=== PATIENT | male | born 2000 ===

== ENCOUNTER 2021-10-17 02:33 | Emergency (ER) | payer OTHER, SELFPAY ==
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
[2021-10-17 02:40] VITALS: BP 111/93; BP 140/82; PULSE 67; PULSE 86; RESP 11; TEMP 36.1; O2SAT 100; O2SAT 98
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
[2021-10-17 03:09] LABS: MANUAL DIFF FLAG NO
[2021-10-17 03:11] LABS: Basophils Percent Auto 0.2 % (0-2); Eosinophils Percent Auto 0.5 % (0-4); Hematocrit 43.2 % (42.0-52.0); Hemoglobin 14.3 g/dl (14.0-18.0); Imm Gran Abs Auto 0.02 X10*3/uL (0.00-0.03); Imm Gran Pct Auto 0.3 % (0.0-0.4); Lymphocytes Absolute Auto 2.3 X10*3/uL (1.2-4.9); Lymphocytes Percent Auto 36.5 % (20-40); Mean Corpuscular HGB Conc 33.1 g/dl (31.0-36.0); Mean Corpuscular Hemoglobin 30.7 pg (27.0-33.0); Mean Corpuscular Volume 92.7 fL (80.0-98.0); Mean Platelet Volume 8.9 fL (9.4-12.4); Monocytes Absolute Auto 0.7 X10*3/uL (0.1-1.2); Monocytes Percent Auto 10.8 % (2-11); Neutrophils Absolute Auto 3.3 x10*3/uL (2.0-8.3); Neutrophils Percent Auto 51.7 % (45-73); Platelet Count 291 X10*3/uL (160-400); Red Blood Count 4.66 X10*6/uL (4.60-5.80); Red Cell Distribution Width 12.4 % (11.0-16.0); White Blood Count 6.3 X10*3/uL (4.8-10.8)
[2021-10-17 03:17] LABS: INTERNATIONAL NORM RATIO 1.1 (0.9-1.1); Prothrombin Time 12.3 SEC (9.9-13.0)
[2021-10-17 03:26] LABS: Alanine Aminotransferase 35 U/L (0-40); Albumin Level 4.7 g/dL (3.5-5.0); Alkaline Phosphatase 58 U/L (39-117); Anion Gap 14 (12-20); Aspartate Amino Transferase 36 U/L (5-37); Bilirubin Total 0.5 mg/dL (0.0-1.0); Blood Urea Nitrogen 7 mg/dL (9-16); Calcium 9.7 mg/dL (8.4-10.2); Carbon Dioxide 27 mmol/L (22-29); Chloride 108 mmol/L (96-108); Creatinine Clr Calc Pharmacy 43.9; Estimated Glomerular Filt Rate > 60; Glucose Random 101 mg/dL (60-115); Lipase 20 U/L (8-78); Potassium 4.2 mmol/L (3.3-5.1); Sodium 145 mmol/L (135-145); Total Protein 7.6 g/dL (6.5-8.0)
[2021-10-17 03:30] LABS: Ethanol 249 mg/dL
[2021-10-17] MEDS: iohexoL 350 MG/ML 100 ML INFUS..BTL 85 ML IV (05:12)
[2021-10-17 05:43] VITALS: BP 100/46; PULSE 61; RESP 13; O2SAT 98
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
--- NOTE | 2021-10-17 07:48 | PC.NURSE ---
JACKET, PHONE WATCH AND SNEAKERS ONLY BELONGINGS AT BEDSIDE AT TIME OF DISCHARGE
== END 2021-10-17 07:48 | disposition home or self-care (01) ==
PROVIDERS: Emergency Provider Student in an Organized Health Care Education/Training Program
DX: S01.21XA Laceration without foreign body of nose, initial encounter (principal); G44.309 Post-traumatic headache, unspecified, not intractable; M54.50 Low back pain, unspecified; F10.129 Alcohol abuse with intoxication, unspecified; R10.2 Pelvic and perineal pain; M54.2 Cervicalgia; Y90.8 Blood alcohol level of 240 mg/100 ml or more; V43.52XA Car driver injured in collision with other type car in traffic accident, initial encounter; Y93.9 Activity, unspecified; Y92.410 Unspecified street and highway as the place of occurrence of the external cause; Y99.9 Unspecified external cause status; Z79.899 Other long term (current) drug therapy
CPT/HCPCS: 36415; 70450; 70486; 71260; 72125; 74177; 80053; 82077; 83690; 85025; 85610; 86850; 86900; 86901; 93005; 99284; Q9967

== ENCOUNTER 2023-08-06 14:15 | Emergency (ER) | payer MEDICAID, SELFPAY ==
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
[2023-08-06 14:35] VITALS: BP 121/77; PULSE 56; RESP 18; TEMP 37.6; O2SAT 98; BMI 18.6
== END 2023-08-06 14:59 | disposition home or self-care (01) ==
PROVIDERS: Emergency Provider Emergency Medicine Emergency Medical Services
DX: Z04.1 Encounter for examination and observation following transport accident (principal)
CPT/HCPCS: 99282; 99283

== ENCOUNTER 2024-09-27 20:04 | Inpatient (IN) | payer MEDICAID, OTHER, SELFPAY ==
--- NOTE | 2024-09-27 20:06 | ED.GENADULT ---
HPI - General Adult General Chief complaint: Back Pain/Injury Stated complaint: back pain Time Seen by Provider: 09/27/24 22:05 Source: patient Mode of arrival: ambulatory Limitations: no limitations History of Present Illness ED Provider: HPI narrative: Patient with multiple complaints came for bilateral flank pain for 3 months without any urinary symptoms, feels delusional smokes marijuana wants to get his mind cleared so that he can focus in his life parents said that patient may making SI and HI statements but patient denied any current SI or HI feels too much going on in his mind and he wants to get treat cleared so that he can focus in his life for future patient does not have any diagnose with schizoaffective disorder/psychotic disorder Related Data Home Medications ?Medication ?Instructions ?Recorded ?Confirmed No Known Home Meds 09/27/24 09/27/24 Allergies Allergy/AdvReac Type Severity Reaction Status Date / Time No Known Allergies Allergy Verified 09/27/24 20:08 Review of Systems Review of Systems: Yes all other systems are reviewed and are negative [facility] Social History Social History Smoked in Last 30 Days: Yes Advance Directives: No Advance Directives Information Provided: No Do you have a plan to hurt others: No Plan Physical Exam ED Vital Signs: Vital Signs - 24 hr 09/27/24 20:07 09/28/24 06:13 Temperature 98.0 F 98.9 F Pulse Rate 60 50 Respiratory Rate 17 14 Blood Pressure 127/87 98/63 Pulse Oximetry 98 99 Oxygen Delivery Method Room Air Room Air BMI result Body Mass Index 20.5 Appearance: Alert. Oriented X3. No acute distress. Eyes: PERRLA, No Nystagmus ENT: Pharynx normal. Oral Mucosa moist Neck: Normal inspection. Neck supple. CVS: Normal heart rate and rhythm. Pulses normal. Respiratory: No respiratory distress. Equal air entry bilateral, no wheezing/rales/rhonchi Abdomen: Soft and nontender. Bowel sounds are present, no mass palpable, no CVA tenderness Skin: Skin warm and dry. Normal skin color. Normal skin turgor. Extremities: No lower extremity edema. No calf tenderness psych: Normal mood not delusion no hallucination denies any SI or HI Neuro: Oriented X 3. No motor deficit. No sensory deficit.No cerebellar signs , cranial nerves II-XII intact Course Course Course Narrative: This is a rapid medical exam performed by Adamaris Barron NP: Additional HPI, ROS, PE not included below will be deferred to primary provider. Patient is a 24-year-old male presenting to the ED complaining of back pain, states I have bad kidneys. Upon arrival to the ED, stepfather brought a phone into triage office stating that patient's mother wants to speak with nursing staff. Mother reports that patient has been making suicidal and homicidal statements. Told his sister on the phone tonight that he had thoughts of hurting himself, shooting others. Mother states he does not have access to firearms, but she has been very concerned with his recent behavior and statements. Patient states I'm not in the best state of mind, I've experienced losing myself, and reports that he is willing to speak with the CARE team. Plan: med clearance, CARE eval Medical Decision Making Medical Decision Making MDM Narrative: Patient is delusional denies any SI or HI would like to talk to care team never seen a psychiatrist or taken any medication, medically cleared patient likely has schizoaffective disorder seen by care team bed search Lab Data MDM Lab Attestation statement: I reviewed the patient's lab results. 09/27/24 20:26 09/27/24 20:26 Labs: Lab Results 09/27/24 09/27/24 Range/Units 20:26 21:10 WBC 9.6 (4.8-10.8) X10*3/uL RBC 4.69 (4.60-5.80) X10*6/uL Hgb 14.3 (14.0-18.0) g/dl Hct 42.0 (42.0-52.0) % MCV 89.6 (80.0-98.0) fL MCH 30.5 (27.0-33.0) pg MCHC 34.0 (31.0-36.0) g/dl RDW 11.6 (11.0-16.0) % Plt Count 283 (160-400) X10*3/uL MPV 9.0 L (9.4-12.4) fL Immature Gran % (Auto) 0.3 (0.0-0.4) % Neut % (Auto) 71.4 (45-73) % Lymph % (Auto) 20.2 (20-40) % [place] % (Auto) 7.7 (2-11) % Eos % (Auto) 0.2 (0-4) % Baso % (Auto) 0.2 (0-2) % Lymph # (Auto) 2.0 (1.2-4.9) X10*3/uL [place] # (Auto) 0.7 (0.1-1.2) X10*3/uL Eos # (Auto) 0.0 (0.0-0.4) X10*3/uL Baso # (Auto) 0.0 (0.0-0.2) X10*3/uL Abs Immat Gran (auto) 0.03 (0.00-0.03) X10*3/uL Absolute Neuts (auto) 6.9 (2.0-8.3) x10*3/uL Absolute Nucleated RBC 0.000 (0.0-0.012) X10*3/uL Nucleated RBC % (auto) 0.0 (0.0-0.2) /100WBC Sodium 140 (135-145) mmol/L Potassium 3.9 (3.3-5.1) mmol/L Chloride 107 (96-108) mmol/L Carbon Dioxide 26 (22-29) mmol/L Anion Gap 11 L (12-20) BUN 13 (9-16) mg/dL Creatinine 0.86 (0.5-1.4) mg/dL Estim Creat Clear Calc 110.5 Estimated GFR > 60 Random Glucose 128 H (60-115) mg/dL Calcium 9.8 (8.4-10.2) mg/dL Total Bilirubin 1.2 H (0.0-1.0) mg/dL AST 22 (5-37) U/L ALT 20 (0-40) U/L Alkaline Phosphatase 53 (39-117) U/L Total Protein 7.7 (6.5-8.0) g/dL Albumin 4.9 (3.5-5.0) g/dL Urine Color Yellow Urine Appearance Clear Urine pH 5.5 (5.0-9.0) Ur Specific [place] >= 1.030 H (1.005-1.025) Urine Protein Negative (Neg-Trace) mg/dL Urine Glucose (UA) Negative (Negative) mg/dL Urine Ketones 15 (Negative) mg/dL Urine Blood Trace H (Negative) Urine Nitrite Negative (Negative) Ur Leukocyte Esterase Negative (Negative) Urine RBC 0-2 (0-2) /HPF Urine WBC 0-5 (0-5) /HPF Ur Squamous Epith Cells 0-2 (0-2) /HPF Urine Bacteria None Seen (None Seen) Hyaline Casts 0-2 (0-2) /LPF Urine Opiates Screen Not Detected (Not Detect) Ur Buprenorphine Scrn Not Detected (Not Detect) ng/mL Ur Oxycodone Screen Not Detected (Not Detect) ng/mL Urine Methadone Screen Not Detected (Not Detect) ng/mL Urine Fentanyl Screen Not Detected (Not Detect) Ur Barbiturates Screen Not Detected (Not Detect) Ur Phencyclidine Scrn Not Detected (Not Detect) Ur Amphetamines Screen Not Detected (Not Detect) U Benzodiazepines Scrn Not Detected (Not Detect) Urine Cocaine Screen Not Detected (Not Detect) U Marijuana (THC) Screen POSITIVE H (Not Detect) Ethyl Alcohol < 10 mg/dL Discharge Plan Discharge Clinical Impression: Schizoaffective disorder Patient Disposition: Still a Patient Prescriptions: No Action No Known Home Meds Print Language: B[place]udian
[2024-09-27 20:07] VITALS: BP 127/87; PULSE 60; RESP 17; TEMP 36.7; O2SAT 98; BMI 20.5
[2024-09-27 20:31] LABS: MANUAL DIFF FLAG NO
[2024-09-27 20:32] LABS: Basophils Percent Auto 0.2 % (0-2); Eosinophils Percent Auto 0.2 % (0-4); Hemoglobin 14.3 g/dl (14.0-18.0); Imm Gran Abs Auto 0.03 X10*3/uL (0.00-0.03); Imm Gran Pct Auto 0.3 % (0.0-0.4); Lymphocytes Percent Auto 20.2 % (20-40); Mean Corpuscular Hemoglobin 30.5 pg (27.0-33.0); Mean Corpuscular Volume 89.6 fL (80.0-98.0); Monocytes Absolute Auto 0.7 X10*3/uL (0.1-1.2); Monocytes Percent Auto 7.7 % (2-11); Neutrophils Absolute Auto 6.9 x10*3/uL (2.0-8.3); Neutrophils Percent Auto 71.4 % (45-73); Platelet Count 283 X10*3/uL (160-400); Red Blood Count 4.69 X10*6/uL (4.60-5.80); Red Cell Distribution Width 11.6 % (11.0-16.0); White Blood Count 9.6 X10*3/uL (4.8-10.8)
[2024-09-27 20:47] LABS: Ethanol < 10 mg/dL
[2024-09-27 20:50] LABS: Alanine Aminotransferase 20 U/L (0-40); Albumin Level 4.9 g/dL (3.5-5.0); Alkaline Phosphatase 53 U/L (39-117); Anion Gap 11 (12-20); Aspartate Amino Transferase 22 U/L (5-37); Bilirubin Total 1.2 mg/dL (0.0-1.0); Blood Urea Nitrogen 13 mg/dL (9-16); Calcium 9.8 mg/dL (8.4-10.2); Carbon Dioxide 26 mmol/L (22-29); Chloride 107 mmol/L (96-108); Creatinine Clr Calc Pharmacy 110.5; Estimated Glomerular Filt Rate > 60; Glucose Random 128 mg/dL (60-115); Potassium 3.9 mmol/L (3.3-5.1); Sodium 140 mmol/L (135-145); Total Protein 7.7 g/dL (6.5-8.0)
[2024-09-27 21:39] LABS: Appearance Urine Clear; Color Urine Yellow; Glucose Urine UA Negative (Negative); Leukocyte Esterase Urine Negative (Negative); Nitrite Urine Negative (Negative); PH 5.5 (5.0-9.0); Specific Gravity - Urine >= 1.030 (1.005-1.025); UMIC TRIGGER UACC YES; Urine Blood Trace (Negative); Urine Ketones 15 mg/dL (Negative); Urine Protein Negative (Neg-Trace)
[2024-09-27 21:42] LABS: Bacteria Urine None Seen (None Seen); Hyaline Casts Urine 0-2 /LPF (0-2); RBC Urine 0-2 /HPF (0-2); Squamous Epithelial Cell Urine 0-2 /HPF (0-2); WBC Urine 0-5 /HPF (0-5)
[2024-09-27 21:52] LABS: Amphetamine Screen Urine Not Detected (Not Detect); Barbiturates, Urine Not Detected (Not Detect); Benzodiazepines Screen Urine Not Detected (Not Detect); Buprenorphine Scr Not Detected (Not Detect); Cannabinoid Screen Urine POSITIVE (Not Detect); Cocaine Screen Urine Not Detected (Not Detect); Fentanyl, urine Not Detected (Not Detect); Methadone Screen, Urine Not Detected (Not Detect); Opiate Screen Urine Not Detected (Not Detect); Oxycodone Screen Urine Not Detected (Not Detect); Phencyclidine Screen Urine Not Detected (Not Detect)
--- NOTE | 2024-09-28 06:10 | PC.NURSE ---
Patient slept through the night, no distress observed/reported, med rec completed/currently not on any medication, disposition per care team is section 12 inpatient bed search, 15 minutes safety check, no behavior and safety concerns, lab completed, VSS, will continue to monitor
[2024-09-28 06:13] VITALS: BP 98/63; PULSE 50; RESP 14; TEMP 37.2; O2SAT 99
--- NOTE | 2024-09-28 10:30 | PC.NURSE ---
pt slept till approx 0930, mother and step father called and message given to the pt, pt informed of pending admission and pt is agreeable and states he wants help
--- NOTE | 2024-09-28 11:58 | P.HPPS_ITS ---
HPI Date of Service: 09/28/24 Chief Complaint: Suicidal and Homicidal Sources of Information: patient interviewed, chart reviewed and crisis/core team assessment reviewed HPI Subjective Notes: [place] Warning and Section 12B Narrative: As per ED Note 09/27/24: Patient with multiple complaints came for bilateral flank pain for 3 months without any urinary symptoms, feels delusional smokes marijuana wants to get his mind cleared so that he can focus in his life parents said that patient may making SI and HI statements but patient denied any current SI or HI feels too much going on in his mind and he wants to get treat cleared so that he can focus in his life for future patient does not have any diagnose with schizoaffective disorder/psychotic disorder Today: Patient does present as very tangential during interview. stated he was here because he felt and stressed and needed help with financial literacy. Required lots of redirection. Also appears very guarded, for example focus on what insurance underwriter was documenting. Also declined signing voluntary paperwork. Educated on Section 12. He denied having any mental health issues and did not feel he needs to be in the hospital or need medications. Denies feeling stressed, overwhelmed, anxious, sleep disturbance, sadness, hallucinations. Reported hopefully his family will see that they can not abandon him and that might be a positive of being in the hospital. Denied substance concerns. Utilizes marijuana. 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 Reports his girlfriend of 4 years is 9 weeks . Denied any legal issues. From CARES evaluation, evidence that family have concerns around suicidal statements recently. He is also appeared paranoid. Also appeared tangential and difficulty organizing self with illogical statements. Past Psychiatric History: denied any psychiatric history. Medical Evaluation Reviewed: Yes PMFSH Social History: This is unclear. Patient reports he was initially homeless, now reports he is not homeless. Reports girlfriend of 4 years is 9 weeks . Denied legal issues. 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 Substance History: Denied Diagnostics Vital Signs (24Hr): Vital Signs - 24 hr 09/27/24 20:07 09/28/24 06:13 Temperature 98.0 F 98.9 F Pulse Rate 60 50 Respiratory Rate 17 14 Blood Pressure 127/87 98/63 Pulse Oximetry 98 99 Oxygen Delivery Method Room Air Room Air BMI result Body Mass Index 20.5 Labs 09/27/24 20:26 09/27/24 20:26 Labs: Laboratory Results - last 48 hr 09/27/24 09/27/24 20:26 21:10 WBC 9.6 RBC 4.69 Hgb 14.3 Hct 42.0 MCV 89.6 MCH 30.5 MCHC 34.0 RDW 11.6 Plt Count 283 MPV 9.0 L Immature Gran % (Auto) 0.3 Neut % (Auto) 71.4 Lymph % (Auto) 20.2 [place] % (Auto) 7.7 Eos % (Auto) 0.2 Baso % (Auto) 0.2 Lymph # (Auto) 2.0 [place] # (Auto) 0.7 Eos # (Auto) 0.0 Baso # (Auto) 0.0 Abs Immat Gran (auto) 0.03 Absolute Neuts (auto) 6.9 Absolute Nucleated RBC 0.000 Nucleated RBC % (auto) 0.0 Sodium 140 Potassium 3.9 Chloride 107 Carbon Dioxide 26 Anion Gap 11 L BUN 13 Creatinine 0.86 Estim Creat Clear Calc 110.5 Estimated GFR > 60 Random Glucose 128 H Calcium 9.8 Total Bilirubin 1.2 H AST 22 ALT 20 Alkaline Phosphatase 53 Total Protein 7.7 Albumin 4.9 Urine Color Yellow Urine Appearance Clear Urine pH 5.5 Ur Specific [place] >= 1.030 H Urine Protein Negative Urine Glucose (UA) Negative Urine Ketones 15 Urine Blood Trace H Urine Nitrite Negative Ur Leukocyte Esterase Negative Urine RBC 0-2 Urine WBC 0-5 Ur Squamous Epith Cells 0-2 Urine Bacteria None Seen Hyaline Casts 0-2 Urine Opiates Screen Not Detected Ur Buprenorphine Scrn Not Detected Ur Oxycodone Screen Not Detected Urine Methadone Screen Not Detected Urine Fentanyl Screen Not Detected Ur Barbiturates Screen Not Detected Ur Phencyclidine Scrn Not Detected Ur Amphetamines Screen Not Detected U Benzodiazepines Scrn Not Detected Urine Cocaine Screen Not Detected U Marijuana (THC) Screen POSITIVE H Ethyl Alcohol < 10 Meds/Allergies Meds Home Medications ?Medication ?Instructions ?Recorded ?Confirmed ?Type No Known Home Meds 09/27/24 09/27/24 History Allergies Allergies Allergy/AdvReac Type Severity Reaction Status Date / Time No Known Allergies Allergy Verified 09/27/24 20:08 Mental Status Exam Mental Status Exam Narrative: hospital clothing. Good hygiene. Very tangential and illogical. Is guarded and does appear paranoid. Adamantly denies feeling depressed, anxious, suicidal or homicidal. Denies hallucinations. Insight and judgment does appear limited Assessment & Plan Assessment & Plan (1) Unspecified psychosis: Status: Acute Code(s): F29 - Unspecified psychosis not due to a substance or known physiological condition Plan patient presents with disorganized thought form and paranoia and also reports of suicidal statements and concern from family. Patient has very limited insight. Denies any psychiatric history. Does not feel he needs inpatient admission or medication treatment. Does fulfill criteria for section 12 evaluation in the context of what are likely psychotic symptoms and also recent suicidal statements. Educated on Section 12 process. Will hold off scheduled medications for now and have as needed hydroxyzine and Zyprexa available Patient educated on: diagnosis and medication risk/benefits Reason for continued inpatient stay Substantial Risk for: harm to self and inability to function Statement Statement: I have reviewed the history and physical and performed a pertinent examination on my patient. No changes have occurred unless specified. If the History and Physical was not performed prior to admission, the Hospitalist's service will be consulted for completing the admission physical. Time Spent With Patient Time: Total time managing care of this patient today ____ minutes.
--- NOTE | 2024-09-28 13:13 | MHC.EDTECH ---
This tech provided lunch tray.
--- NOTE | 2024-09-28 13:17 | MHC.EDTECH ---
This tech while delivering lunch tray observed patient and guest arguing. Patient asked for guest to be escorted out. Guest asked me to obain debit card from patients phone. Patient declined to provide card to guest. Guest escorted to security. Security and RN aware of arguing.
[2024-09-28 14:30] VITALS: BP 113/73; PULSE 59; RESP 16; TEMP 36.7; O2SAT 99
[2024-09-28 17:11] VITALS: BMI 16.8
--- NOTE | 2024-09-28 17:17 | PC.ADMIT ---
Greg was admitted to [facility] from [facility] on a 12a on 09/28/24 at 14:20 for the treatment of psychosis. He declined CV upon admission and was placed on a 12b. Contraband/skin check was completed upon arrival to the unit. He denies use of ETOH but endorses daily use of cannabis and reports he smokes 1 blunt/day. Utox was positive for THC and BAL was <10. He does not take medications at home. He reports being homeless but also stated he rents a room from someone but did not specify. He initially self presented to [facility] with his step-father complaining of back pain. His mother reported over the phone that Greg had been making suicidal and homicidal statements and also reported concern over his recent behavior. He was calm and cooperative with admission process. His thought process was disorganized and speech was tangential. He denies having any medical problems. He was placed on 15 minute checks for safety.
[2024-09-28] MEDS: Ibuprofen 600 MG TABLET PO (17:29)
[2024-09-28 20:00] VITALS: BP 108/63; PULSE 54; TEMP 37; O2SAT 97
--- NOTE | 2024-09-28 22:34 | PC.NURSE ---
Patient complained of 8/10 back pain, but when this bond underwriter offered PRN tylenol, patient stated he had no pain and just wants to sleep.
[2024-09-29 07:57] VITALS: BP 117/59; PULSE 67; RESP 16; TEMP 36.7; O2SAT 100
[2024-09-29 08:24] LABS: Cholesterol 153 mg/dL (<200); HDL Cholesterol 72 mg/dL (>40); LDL Cholesterol Calculated 74 mg/dL (<100); Triglycerides 35 mg/dL (<150)
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
[2024-09-29] MEDS: Ibuprofen 600 MG TABLET PO (09:04)
[2024-09-29 20:00] VITALS: BP 118/66; PULSE 70; RESP 16; TEMP 37; O2SAT 98
[2024-09-30 07:44] VITALS: BP 121/71; PULSE 81; TEMP 37.1; O2SAT 100
--- NOTE | 2024-09-30 14:46 | P.DS_ITS ---
DS: Providers Provider Date of Service: 09/30/24 Date of admission: 09/28/24 12:02 Date of discharge: 10/01/24 Primary care physician: José Physician DS: Diagnosis Discharge Diagnosis (1) Unspecified psychosis: Status: Acute DS: Medications Discharge Medications Home Medications: Home Medications ?Medication ?Instructions ?Recorded ?Confirmed No Known Home Meds 09/27/24 09/27/24 Mental Status Exam Mental Status Exam Narrative: casually dressed. Good hygiene. Very tangential and illogical . Verbally hostile towards mom and agitated. Appears paranoid especially around family. Adamantly denies feeling depressed, anxious, suicidal or homicidal. Denies hallucinations. Insight and judgment does appear limited. denies SI/HI. Data Data Completed and Pending Completed studies during hospitalization [Text1]: 09/27/24 09/27/24 09/29/24 20:26 21:10 07:38 WBC 9.6 RBC 4.69 Hgb 14.3 Hct 42.0 MCV 89.6 MCH 30.5 MCHC 34.0 RDW 11.6 Plt Count 283 MPV 9.0 L Immature Gran % (Auto) 0.3 Neut % (Auto) 71.4 Lymph % (Auto) 20.2 [place] % (Auto) 7.7 Eos % (Auto) 0.2 Baso % (Auto) 0.2 Lymph # (Auto) 2.0 Free[place] # (Auto) 0.7 Eos # (Auto) 0.0 Baso # (Auto) 0.0 Abs Immat Gran (auto) 0.03 Absolute Neuts (auto) 6.9 Absolute Nucleated RBC 0.000 Nucleated RBC % (auto) 0.0 Sodium 140 Potassium 3.9 Chloride 107 Carbon Dioxide 26 Anion Gap 11 L BUN 13 Creatinine 0.86 Estim Creat Clear Calc 110.5 Estimated GFR > 60 Random Glucose 128 H Calcium 9.8 Total Bilirubin 1.2 H AST 22 ALT 20 Alkaline Phosphatase 53 Total Protein 7.7 Albumin 4.9 Triglycerides 35 Cholesterol 153 LDL Cholesterol, Calc 74 HDL Cholesterol 72 Urine Color Yellow Urine Appearance Clear Urine pH 5.5 Ur Specific [place] >= 1.030 H Urine Protein Negative Urine Glucose (UA) Negative Urine Ketones 15 Urine Blood Trace H Urine Nitrite Negative Ur Leukocyte Esterase Negative Urine RBC 0-2 Urine WBC 0-5 Ur Squamous Epith Cells 0-2 Urine Bacteria None Seen Hyaline Casts 0-2 Urine Opiates Screen Not Detected Ur Buprenorphine Scrn Not Detected Ur Oxycodone Screen Not Detected Urine Methadone Screen Not Detected Urine Fentanyl Screen Not Detected Ur Barbiturates Screen Not Detected Ur Phencyclidine Scrn Not Detected Ur Amphetamines Screen Not Detected U Benzodiazepines Scrn Not Detected Urine Cocaine Screen Not Detected U Marijuana (THC) Screen POSITIVE H Ethyl Alcohol < 10 DS: Summary Hospital Course Hospital Course: per 09/28 admission note: HPI Subjective Notes: Sarabia Warning and Section 12B Narrative: As per ED Note 09/27/24: Patient with multiple complaints came for bilateral flank pain for 3 months without any urinary symptoms, feels delusional smokes marijuana wants to get his mind cleared so that he can focus in his life parents said that patient may making SI and HI statements but patient denied any current SI or HI feels too much going on in his mind and he wants to get treat cleared so that he can focus in his life for future patient does not have any diagnose with schizoaffective disorder/psychotic disorder Today: Patient does present as very tangential during interview. stated he was here because he felt and stressed and needed help with financial literacy. Required lots of redirection. Also appears very guarded, for example focus on what grant writer was documenting. Also declined signing voluntary paperwork. Educated on Section 12. He denied having any mental health issues and did not feel he needs to be in the hospital or need medications. Denies feeling stressed, overwhelmed, anxious, sleep disturbance, sadness, hallucinations. Reported hopefully his family will see that they can not abandon him and that might be a positive of being in the hospital. Denied substance concerns. Utilizes marijuana. 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 Reports his girlfriend of 4 years is 9 weeks . Denied any legal issues. From CARES evaluation, evidence that family have concerns around suicidal statements recently. He is also appeared paranoid. Also appeared tangential an d difficulty organizing self with illogical statements. Past Psychiatric History: denied any psychiatric history. Medical Evaluation Reviewed: Yes PMFSH Social History: This is unclear. Patient reports he was initially homeless, now reports he is not homeless. Reports girlfriend of 4 years is 9 weeks . Denied legal issues. 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 Substance History: Denied Precis: patient presents with disorganized thought form and paranoia and also reports of suicidal statements and concern from family. Patient has very limited insight. Denies any psychiatric history. Does not feel he needs inpatient admission or medication treatment. Does fulfill criteria for section 12 evaluation in the context of what are likely psychotic symptoms and also recent suicidal statements. Educated on Section 12 process. Will hold off scheduled medications for now and have as needed hydroxyzine and Zyprexa available 09/29: Could likely benefit from a least a mood stabilizer probably an anti psychotic. Reports not wanting any medications. Will set limits on pt engaging with family as this appears to agitate patient. Otherwise continue to observe and attempt to educate on symptoms and role for medications. 09/30: refusing medications, denying safety concerns, asking for discharge. agreeable to discharge tomorrow. 10/01: no notable events overnight, discharged as per plan. Time Spent with Patient Time attestation: Total time managing care of this patient today __35__ minutes. Discharge Plan Discharge Anticipated Discharge Date/Time: 10/01/24 11:00 Patient Disposition: Home, Self-Care Discharge Diagnosis: Psychotic Disorder NOS Referrals: [facility] [Other] - 1 Week (walk in hours are 10am-12pm Monday-Monday.) [facility] [Provider Group] - 1 Week (09-30-24 09-30-24 [facility] was added to patients chart. Please call [phone] to schedule your follow up visit.) Discharge Medications: No Action No Known Home Meds Discharge Orders: Discharge Order (Routine); Ordered 10/01/24 Ordered By: Nolberto Bowman Diet: Advance to usual diet Activity on Discharge: As tolerated Stand Alone Forms: Patient Portal Discharge page, Community Support Print Language: Nepalese Care Plan Goals: remain safe and stable in the outpatient treatment setting Health Concerns: none Plan of Treatment: seek out mental health care in your area if you change your mind regarding the benefits of therapy and/or medication Assessment: not at imminent risk of harm to self or others Discharge Date/Time: 10/01/24 11:00
[2024-09-30 20:00] VITALS: BP 144/74; PULSE 84; RESP 16; TEMP 37.3; O2SAT 99
[2024-09-30] MEDS: hydrOXYzine HCL 25 MG TABLET PO (21:53)
[2024-10-01 08:00] VITALS: BP 106/60; PULSE 55; RESP 16; TEMP 36.6; O2SAT 98
--- NOTE | 2024-10-01 10:12 | PC.NURSE ---
Patient declined nicotine replacement when offered.
--- NOTE | 2024-10-01 11:04 | PC.NURSE ---
Patient was aware of discharge, reported readiness for discharge. D/C information given to the patient. Took his belongings with him. Left the unit at 11:00.
== END 2024-10-01 11:00 | disposition home or self-care (01) | DRG 751 ==
LOC: HO.ED 09-28 07:14 → HO.PADLT16 09-28 12:08
PROVIDERS: Registered Nurse Emergency; Admitting Provider Psychiatry & Neurology Psychiatry; Emergency Provider Internal Medicine; Visit Provider Psychiatry & Neurology Psychiatry
DX: F29 Unspecified psychosis not due to a substance or known physiological condition (principal); Z79.899 Other long term (current) drug therapy
CPT/HCPCS: 36415; 80053; 80061; 80307; 81001; 85025; 99285

== ENCOUNTER → 2024-09-28 12:02 | Outpatient (BNV) | payer OTHER, SELFPAY | PROVIDERS: Admitting Provider Psychiatry & Neurology Psychiatry; Emergency Provider Internal Medicine; Visit Provider Psychiatry & Neurology Psychiatry | DX: F29 Unspecified psychosis not due to a substance or known physiological condition (principal) | CPT/HCPCS: 99231; 99232 ==

== ENCOUNTER 2024-10-03 18:44 | Inpatient (IN) | payer MEDICAID, OTHER, SELFPAY ==
[2024-10-03 19:11] VITALS: BP 117/78; PULSE 82; RESP 20; TEMP 36.4; O2SAT 98; BMI 15.7
--- NOTE | 2024-10-03 19:12 | ED_ITS ---
HPI - Psych General Chief Complaint: Psychiatric Symptoms Stated Complaint: maniac Time Seen by Provider: 10/03/24 19:58 Source: patient Mode of arrival: ambulatory Limitations: no limitations History of Present Illness ED Provider: Lizzeth Reich PA-C HPI Narrative: Patient is a 24 year old assigned male at with a history of schizoaffective disorder presenting to the emergency department today with possible florentin. Patient states that he has been under a lot of stress and his girlfriend thinks that he is acting differently. Patient denies any thoughts of hurting himself, thoughts of hurting others, dizziness, lightheadedness, abdominal pain, nausea, vomiting, fever, chills, blurry vision, double vision, loss of vision, chest pain, difficulty breathing, shortness of breath, back pain, night sweats, pain with urination, increased urinary frequency, increased urinary urgency, blood in his urine or stool, syncope or a near syncopal episode, recent trauma or falls, bowel incontinence, bladder incontinence, or any other complaints at this time. Related Data Home Medications ?Medication ?Instructions ?Recorded ?Confirmed No Known Home Meds 09/27/24 09/27/24 Allergies Allergy/AdvReac Type Severity Reaction Status Date / Time No Known Allergies Allergy Verified 10/03/24 19:14 Review of Systems 2 Constitutional: Constitutional: Reports no additional constitutional complaints, Denies chills, Denies fever(s) and Denies night sweats Eyes: Eyes: Reports no additional eye complaints, Denies blurry vision, Denies change in vision, Denies diplopia, Denies eye discharge, Denies loss of vision and Denies eye pain ENT: Denies dizziness Cardiovascular: Cardiovascular: Reports no additional cardiovascular complaints, Denies chest pain, Denies lightheadedness, Denies Loss of Consciousness and Denies dyspnea Respiratory: Respiratory: Reports no additional respiratory complaints and Denies dyspnea Gastrointestinal: Gastrointestinal: Reports no additional gastrointestinal complaints, Denies abdominal pain, Denies melena, Denies hematochezia, Denies change in bowel habits and Denies change in stool character Genitourinary: Genitourinary: Reports no additional male genitourinary complaints, Denies hematuria, Denies oliguria, Denies difficulty urinating, Denies dysuria, Denies urinary frequency, Denies urinary hesitancy, Denies urinary incontinence and Denies urinary urgency Musculoskeletal: Musculoskeletal: Reports no additional musculoskeletal complaints, Denies numbness and Denies tingling Neurologic: Reports behavioral changes, Denies dizziness, Denies loss of vision, Denies numbness and Denies tingling Psychiatric: Psychiatric: Reports behavioral changes Endocrine: Endocrine: Reports no additional endocrine complaints Hematologic/Lymphatic: Hematologic/Lymphatic: Reports no additional hematologic/lymphatic complaints Allergic/Immunologic: Allergic/Immunologic: Reports no additional allergic/immunologic complaints PMF Past Medical History Attestation statement: The following information was validated with the patient. Source: old records reviewed and nursing notes reviewed Social History Social History Household Members: Unknown / Unable to assess Housing: Homeless Do you presently have visiting nurse or other home services: No Patient Tobacco Use Status: Current everyday Tobacco user Tobacco use type: Cigarette e-Cigarette/Vaping Use: Currently Using Substance Use Type: Marijuana Do you have a plan to hurt others: No Plan service: No Sexual orientation: Straight/Heterosexual Physical Exam 2 Vital Signs: Vital Signs: Last Vital Signs Temp 97.6 F 10/03/24 19:11 Pulse 82 10/03/24 19:11 Resp 20 10/03/24 19:11 BP 117/78 10/03/24 19:11 Pulse Ox 98 10/03/24 19:11 O2 Del Method Room Air 10/03/24 19:11 BMI result Body Mass Index 15.7 Const: General: cooperative, no acute distress, alert and awake Nutritional Appearance: well nourished Orientation/consciousness: patient oriented x3 Limitations: no limitations HEENT: Head: Yes normal to inspection and Yes atraumatic Ears: hearing grossly normal bilaterally and external ears normal General nose exam: Normal external nose present, no nasal discharge noted and no epistaxis Face and sinus: Yes normal facial exam, No abrasion and No laceration Mouth: Normal oral and palatal mucosa present, no drooling and no muffled voice Eyes: General: appearance normal, both eyes and all related structures P eriorbital: periorbital findings normal Eyelids: Yes eyelids normal C onjunctivae: conjunctivae normal Pupils: Equal, round and reactive pupils present EOM: EOMs intact bilaterally Neck: Neck: Yes normal visual inspection, Yes full ROM and Yes no lymphadenopathy Chest: Chest palpation & inspection: normal inspection of the chest Resp: Effort & Inspection: normal respiratory effort and able to speak in complete sentences GI: Inspection: Yes normal to inspection Neuro: General: patient oriented x3, moves all extremities and CN's II-XI intact bilaterally Cranial nerves: Yes Equal, round and reactive pupils present Cognition (Neuro): normal cognition Extrem: General: Yes normal to inspection, Yes full ROM and Yes capillary refill normal Psych: Appearance: grossly normal Mental Status: mental status grossly normal Affect: Labile affect present Attitude: cooperative Thought process: Confabulating thought process present and Racing thoughts present Course Course Course Narrative: This is a rapid medical exam performed by Adamaris Barron NP: Additional HPI, ROS, PE not included below will be deferred to primary provider. Patient is a 24-year-old male with schizoaffective disorder presenting to the ED with rapid, pressured speech. Was recently admitted for inpatient psych on 09/28-09/30. States his girlfriend is keeping his ID away from him. Perseverating about getting a 9-5 job. Living with girlfriend at this time. Denies AH/VH but states I wouldn't admit it even if I did. Denies SI/HI. Plan: med clearance, CARE team eval Medical Decision Making Medical Decision Making [facility] Narrative: Patient is a 24 year old assigned male at with a history of schizoaffective disorder presenting to the emergency department today with possible florentin. Patient's physical exam showed an excited individual with hyperverbal speech but otherwise unremarkable. Patient's blood work was unremarkable. I explained my physical exam findings as well as all test results to the patient. I answered all questions asked by the patient. Patient's disposition will be determined after CARE team evaluation. Differential Diagnosis Differential Diagnoses: The differential diagnosis associated with the presentation includes Florentin Psychosis Admission/Observation Consideration of admission/observation: Escalation of care including admission/observation considered Patient's disposition will be determined after CARE team evaluation. Lab Data [facility] Lab Attestation statement: I reviewed the patient's lab results. My interpretation of these results are in the MDM Rationale portion of this note. 10/03/24 20:04 10/03/24 20:03 Discharge Plan Discharge Clinical Impression: Schizoaffective disorder Patient Disposition: Still a Patient Prescriptions: No Action No Known Home Meds Interventions: Susan-Suicide Risk Severity Scale Last Done: 10/03/24 19:18 Print Language: Filipino
[2024-10-03 20:12] LABS: MANUAL DIFF FLAG NO
[2024-10-03 20:21] LABS: Basophils Percent Auto 0.3 % (0-2); Eosinophils Percent Auto 0.2 % (0-4); Hematocrit 39.5 % (42.0-52.0); Hemoglobin 13.5 g/dl (14.0-18.0); Imm Gran Abs Auto 0.03 X10*3/uL (0.00-0.03); Imm Gran Pct Auto 0.3 % (0.0-0.4); Lymphocytes Absolute Auto 2.1 X10*3/uL (1.2-4.9); Lymphocytes Percent Auto 18.2 % (20-40); Mean Corpuscular HGB Conc 34.2 g/dl (31.0-36.0); Mean Corpuscular Hemoglobin 30.3 pg (27.0-33.0); Mean Corpuscular Volume 88.6 fL (80.0-98.0); Mean Platelet Volume 9.5 fL (9.4-12.4); Monocytes Percent Auto 8.9 % (2-11); Neutrophils Absolute Auto 8.5 x10*3/uL (2.0-8.3); Neutrophils Percent Auto 72.1 % (45-73); Platelet Count 278 X10*3/uL (160-400); Red Blood Count 4.46 X10*6/uL (4.60-5.80); Red Cell Distribution Width 11.6 % (11.0-16.0); White Blood Count 11.7 X10*3/uL (4.8-10.8)
[2024-10-03 20:23] LABS: Appearance Urine Clear; Color Urine Yellow; Glucose Urine UA Negative (Negative); Leukocyte Esterase Urine Negative (Negative); Nitrite Urine Negative (Negative); Specific Gravity - Urine >= 1.030 (1.005-1.025); Urine Blood Negative (Negative); Urine Ketones Trace mg/dL (Negative); Urine Protein Negative (Neg-Trace)
[2024-10-03 20:31] LABS: Amphetamine Screen Urine Not Detected (Not Detect); Barbiturates, Urine Not Detected (Not Detect); Benzodiazepines Screen Urine Not Detected (Not Detect); Buprenorphine Scr Not Detected (Not Detect); Cannabinoid Screen Urine POSITIVE (Not Detect); Cocaine Screen Urine Not Detected (Not Detect); Fentanyl, urine Not Detected (Not Detect); Methadone Screen, Urine Not Detected (Not Detect); Opiate Screen Urine Not Detected (Not Detect); Oxycodone Screen Urine Not Detected (Not Detect); Phencyclidine Screen Urine Not Detected (Not Detect)
[2024-10-03 20:34] LABS: Alanine Aminotransferase 26 U/L (0-40); Albumin Level 4.4 g/dL (3.5-5.0); Alkaline Phosphatase 53 U/L (39-117); Anion Gap 13 (12-20); Aspartate Amino Transferase 32 U/L (5-37); Blood Urea Nitrogen 15 mg/dL (9-16); Calcium 9.5 mg/dL (8.4-10.2); Carbon Dioxide 26 mmol/L (22-29); Chloride 108 mmol/L (96-108); Estimated Glomerular Filt Rate > 60; Ethanol < 10 mg/dL; Glucose Random 117 mg/dL (60-115); Potassium 3.8 mmol/L (3.3-5.1); Sodium 143 mmol/L (135-145); Total Protein 7.1 g/dL (6.5-8.0)
--- NOTE | 2024-10-03 20:45 | PC.NURSE ---
pt reports that they are not taking any home medications
[2024-10-03 21:03] LABS: Influenza A PCR NEGATIVE (Negative); Influenza B PCR NEGATIVE (Negative); Resp Syncy Virus RNA Qual PCR NEGATIVE (Negative); SARS COV2 PCR INHOUSE NEGATIVE (Negative)
--- NOTE | 2024-10-03 23:23 | PC.NURSE ---
patient appears in no distress at present seated in common area appears in no distress, checked in with this filing writer, lengthy rambling/meadnering with many metaphors about why this is happening today, mentions conflict w gf.
--- NOTE | 2024-10-04 03:31 | PC.NURSE ---
client asked for snack and then paced a little bit had to be redirected regarding hanging out near doors. flight risk signs put up.
--- NOTE | 2024-10-04 04:05 | PC.NURSE ---
asked patient if he desired any medication to help him sleep as he has been awake seemed restless after care team assessment patient declines.
[2024-10-04] MEDS: diphenhydrAMINE HCL 25 MG CAPSULE 50 MG PO (04:13)
--- NOTE | 2024-10-04 04:13 | PC.NURSE ---
in discussion with staff client relayed thoughts that a cat he was taking care of that he got for 25 dollars was affecting his awareness and and would scratch at him when he walked by .
[2024-10-04 06:14] VITALS: RESP 16
--- NOTE | 2024-10-04 07:22 | PC.NURSE ---
Assumed care of patient at 0645, patient appears to be sleeping, respirations even and unlabored, no apparent distress noted. Continue plan of care for psych consult
--- NOTE | 2024-10-04 11:12 | MHC.CARE ---
Case consultation completed with Giovanna Vivas NP plan for Pt to be IPLOC bedsearch at this time.
[2024-10-04] MEDS: OLANZapine ODT 10 MG TAB.RAPDIS TRANSLINGU (12:12)
--- NOTE | 2024-10-04 14:02 | PHA.MEDREC ---
Pharmacy Consult ? Medication Reconciliation Pharmacy has reviewed the medication reconciliation completed by nursing.
[2024-10-04 14:10] VITALS: BP 108/78; PULSE 68; RESP 14; TEMP 36.7; O2SAT 99
[2024-10-04 16:25] VITALS: BMI 14.9
[2024-10-04 16:26] VITALS: BP 113/80; PULSE 67; RESP 18; TEMP 36.2; O2SAT 98
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
--- NOTE | 2024-10-04 17:12 | PC.NURSE ---
Pt declined Flu shot, to sign releases of information and nicotine replacement.
[2024-10-04 20:00] VITALS: BP 119/62; PULSE 61; RESP 16; TEMP 36.9; O2SAT 98
[2024-10-05 07:29] VITALS: BP 114/67; PULSE 54; RESP 16; TEMP 36.6; O2SAT 99
--- NOTE | 2024-10-05 11:11 | HO.PSYADMNOT ---
[facility] Date of Service: 10/05/24 Chief Complaint: florentin Sources of Information: patient interviewed, chart reviewed and crisis/core team assessment reviewed HPI Subjective Notes: [place] Warning and Conditional Voluntary Narrative: Patient is a 24-year-old male with history of bipolar versus schizoaffective disorder who presents again after being discharged from a week ago, for manic behavior at the behest of his girlfriend. Patient initially irritable and hyperverbal, saying he wants to be discharged and that the reason he is here is i push positively...i'm a positive individual...that's why i'm here... However he willingly took Zyprexa 10 mg as a p.r.n. and afterward, he was more calm and much more organized in speech behavior. Patient reports that over the past week he and his girlfriend have been arguing. Initially they are arguing about the bills but after he found their male cat, urinating/spraying on various items, marking its territory on furniture and a number of patient's personal belongings. Frustrated he gave the cat away which significantly upset his girlfriend. Patient says that when I get an argument I just walk away... 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 He complied. Patient reports that over the past week has been sleeping about 4-5 hours a night. He denies any AVH; denies any drug or alcohol use other than cannabis which he said he quit a week ago. Denies any SI/HI. Sales Agent Pest Control Service discussed how much more organized and logical patient is after he took the Zyprexa and patient said he fully agrees that it has made a difference and that he feels more clear minded. He agreed to continue taking it. Past Psychiatric History: denied any psychiatric history. Medical Evaluation Reviewed: Yes PMFSH Family History: Patient denies Social History: Patient reports that he pays the bills an apartment he shares with his girlfriend; however, a week ago at recent admission he said he was homeless Reports girlfriend of 4 years is 9 weeks . Denied legal issues. 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 Substance History: cannabis only; quit a week ago. no alcohol/drugs Trauma History: hx of trauma including being kicked out of the house at age 16 Diagnostics Vital Signs (24Hr): Vital Signs - 24 hr 10/04/24 14:10 10/04/24 16:26 10/04/24 20:00 Temperature 98.0 F 97.1 F 98.5 F Pulse Rate 68 67 61 Respiratory Rate 14 18 16 Blood Pressure 108/78 113/80 119/62 Pulse Oximetry 99 98 98 Oxygen Delivery Method Room Air Room Air Room Air 10/05/24 07:29 Temperature 97.8 F Pulse Rate 54 Respiratory Rate 16 Blood Pressure 114/67 Pulse Oximetry 99 Oxygen Delivery Method Room Air BMI result Body Mass Index 14.9 Labs 10/03/24 20:04 10/03/24 20:03 Labs: Laboratory Results - last 48 hr 10/03/24 10/03/24 10/03/24 20:03 20:04 20:05 WBC 11.7 H RBC 4.46 L Hgb 13.5 L Hct 39.5 L MCV 88.6 MCH 30.3 MCHC 34.2 RDW 11.6 Plt Count 278 MPV 9.5 Immature Gran % (Auto) 0.3 Neut % (Auto) 72.1 Lymph % (Auto) 18.2 L [place] % (Auto) 8.9 Eos % (Auto) 0.2 Baso % (Auto) 0.3 Lymph # (Auto) 2.1 [place] # (Auto) 1.0 Eos # (Auto) 0.0 Baso # (Auto) 0.0 Abs Immat Gran (auto) 0.03 Absolute Neuts (auto) 8.5 H Absolute Nucleated RBC 0.000 Nucleated RBC % (auto) 0.0 Sodium 143 Potassium 3.8 Chloride 108 Carbon Dioxide 26 Anion Gap 13 BUN 15 Creatinine 0.80 Estim Creat Clear Calc 88.0 Estimated GFR > 60 Random Glucose 117 H Calcium 9.5 Total Bilirubin 1.0 AST 32 ALT 26 Alkaline Phosphatase 53 Total Protein 7.1 Albumin 4.4 Urine Color Yellow Urine Appearance Clear Urine pH 6.0 Ur Specific [place] >= 1.030 H Urine Protein Negative Urine Glucose (UA) Negative Urine Ketones Trace Urine Blood Negative Urine Nitrite Negative Ur Leukocyte Esterase Negative Urine Opiates Screen Not Detected Ur Buprenorphine Scrn Not Detected Ur Oxycodone Screen Not Detected Urine Methadone Screen Not Detected Urine Fentanyl Screen Not Detected Ur Barbiturates Screen Not Detected Ur Phencyclidine Scrn Not Detected Ur Amphetamines Screen Not Detected U Benzodiazepines Scrn Not Detected Urine Cocaine Screen Not Detected U Marijuana (THC) Screen POSITIVE H Ethyl Alcohol < 10 Influenza Type A (PCR) NEGATIVE Influenza Type B (PCR) NEGATIVE RSV RNA Qual (PCR) NEGATIVE SARS-CoV-2 RNA (RT-PCR) NEGATIVE Meds/Allergies Meds Home Medications ?Medication ?Instructions ?Recorded ?Confirmed ?Type No Known Home Meds 09/27/24 10/03/24 History Allergies Allergies Allergy/AdvReac Type Severity Reaction Status Date / Time No Known Allergies Allergy Verified 10/03/24 19:14 Mental Status Exam Mental Status Exam Narrative: Pt is alert and oriented; behavior is irritable, hyperactive, hyperverbal, but able to eventually become cooperative and friendly; patient is not in distress; dressed in casual attire well manicured hair cut and adequate hygiene; mood is described as good and affect constricted verse expansive; eye contact appropriate; Speech hyperverbal and somewhat pressured; a little loud; psychomotor agitation present; thought process can be goal oriented and organized but also somewhat tangential; Thought content is on recent interaction with girlfriend, tx; otherwise pertinent to relevant topics and without any delusional content, paranoid ideations or grandiosity; denies any SI/HI. Denies AVH There is no evidence of perceptual disturbance. Patients insight and judgment impaired Assessment & Plan Assessment & Plan (1) Schizoaffective disorder: Status: Acute Code(s): F25.9 - Schizoaffective disorder, unspecified Plan Patient is a 24-year-old male with history of bipolar versus schizoaffective disorder who presents again after being discharged from a week ago, for manic behavior at the behest of his girlfriend. Patient initially irritable and hyperverbal, saying he wants to be discharged and that the reason he is here is i push positively...i'm a positive individual...that's why i'm here... However he willingly took Zyprexa 10 mg as a p.r.n. and afterward, he was more calm and much more organized in speech behavior. Patient reports that over the past week he and his girlfriend have been arguing. Initially they are arguing about the bills but after he found their male cat, urinating/spraying on various items, marking its territory on furniture and a number of patient's personal belongings. Frustrated he gave the cat away which significantly upset his girlfriend. Patient says that when I get an argument I just walk away... 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 He complied. Patient reports that over the past week has been sleeping about 4-5 hours a night. He denies any AVH; denies any drug or alcohol use other than cannabis which he said he quit a week ago. Denies any SI/HI. Sales Agent Pest Control Service discussed how much more organized and logical patient is after he took the Zyprexa and patient said he fully agrees that it has made a difference and that he feels more clear minded. He agreed to continue taking it. Formulation/clinical reasoning: Patient re presents, a week after discharge for similar presentation with manic behaviors. However patient seems to respond well to Zyprexa. He does not want to take lithium but agrees to continue taking Zyprexa daily. Has for diagnosis, will continue earlier diagnosis of schizoaffective disorder; could possibly be just bipolar disorder Plan: CV Q 15 minute checks Zyprexa 10 mg daily Zyprexa 5 mg t.i.d. p.r.n. for agitation Discontinue lithium; patient does not want and Zyprexa seem to be helpful Clonidine p.r.n. Patient educated on: diagnosis, medication risk/benefits and therapeutic strategies Informed Consent: understands, does not understand and further education needed Reason for continued inpatient stay Substantial Risk for: rapid decompensation Statement Statement: I have reviewed the history and physical and performed a pertinent examination on my patient. No changes have occurred unless specified. If the History and Physical was not performed prior to admission, the Hospitalist's service will be consulted for completing the admission physical. Time Spent With Patient Time: Total time managing care of this patient today ____ minutes.
[2024-10-05] MEDS: OLANZapine ODT 10 MG TAB.RAPDIS TRANSLINGU (11:18)
[2024-10-05] MEDS: hydrOXYzine HCL 25 MG TABLET PO (11:18)
[2024-10-05] MEDS: OLANZapine 5 MG TABLET PO ×2 (18:36→22:27)
[2024-10-05 20:00] VITALS: BP 144/70; PULSE 96; RESP 16; TEMP 36.9; O2SAT 97
[2024-10-06 08:00] VITALS: BP 131/81; PULSE 60; RESP 15; TEMP 36.3; O2SAT 100
[2024-10-06] MEDS: OLANZapine 10 MG TABLET PO ×2 (08:50→21:34)
[2024-10-06] MEDS: OLANZapine 5 MG TABLET PO ×2 (13:40→14:43)
[2024-10-06] MEDS: hydrOXYzine HCL 25 MG TABLET PO (14:25)
[2024-10-06] MEDS: Nicotine Polacrilex 2 MG GUM 4 MG BUCCAL (14:26)
--- NOTE | 2024-10-06 16:34 | HO.PSYCHPN ---
Subjective Subjective Date of Service: 10/06/24 Reason For Visit: florentin Interim History: Met with patient; discussed with team Patient taking medications but still hypomanic/manic. Discussed this with patient who did not have much insight into this however agreed to increase Zyprexa to b.i.d. dosing. Materials Branch Chief discussed Depakote however patient did not want to take any other medications besides Zyprexa. He continued to talk about needing to go, take care of his car which was his main focused during the conversation. Patient slept Mental Status Exam Mental Status Exam Narrative: Pt is alert and oriented; behavior is intermittently irritable and, hyperactive, hyperverbal, but can also be cooperative; patient is not in distress; dressed in casual attire well manicured hair cut and adequate hygiene; mood is described as good although affect constricted vs a little expansive; eye contact appropriate; Speech hyperverbal and somewhat pressured; normal volume; intermittent mild psychomotor agitation present; thought process can be goal oriented and organized but also distracted; Thought content is on discharge, his car, not on treatment; no paranoid/grandiose ideations expressed; denies any SI/HI. Denies AVH There is no evidence of perceptual disturbance. Patients insight and judgment impaired but improved some Diagnostics Vital Signs (24Hr): Vital Signs - 24 hr 10/05/24 20:00 10/06/24 08:00 Temperature 98.4 F 97.3 F Pulse Rate 96 60 Respiratory Rate 16 15 Blood Pressure 144/70 H 131/81 Pulse Oximetry 97 100 Oxygen Delivery Method Room Air Room Air BMI result Body Mass Index 14.9 Labs 10/03/24 20:04 10/03/24 20:03 Medications Medications Current Medications Acetaminophen (Acetaminophen 325 Mg Tablet) 650 mg PO Q6H PRN PRN Reason: Headache/Pain Mild Scale (1-3) Al Hydroxide/Mg Hydroxide (Magnesium Hydrox/Alum Hydrox 30 Ml Oral.Susp) 30 ml PO Q6H PRN PRN Reason: Heartburn/Nausea Clonidine HCl (Clonidine Hcl 0.1 Mg Tablet) 0.1 mg PO Q4H PRN; Protocol PRN Reason: anxiety Hydroxyzine HCl (Hydroxyzine Hcl 25 Mg Tablet) 25 mg PO Q6H PRN PRN Reason: Anxiety Last Admin: 10/06/24 14:25 Dose: 25 mg Magnesium Hydroxide (Milk Of Magnesia 30 Ml Oral.Susp) 30 ml PO DAILY PRN PRN Reason: Constipation Nicotine Polacrilex (Nicotine Polacrilex 2 Mg Gum) 4 mg BUCCAL Q2H PRN PRN Reason: Nicotine Cravings Last Admin: 10/06/24 14:26 Dose: 4 mg Olanzapine (Olanzapine 10 Mg Tablet) 10 mg PO BID ALAN Olanzapine (Olanzapine 5 Mg Tablet) 5 mg PO QID PRN PRN Reason: agitation/florentin Last Admin: 10/06/24 14:43 Dose: 5 mg Trazodone HCl (Trazodone Hcl 50 Mg Tablet) 50 mg PO BEDTIME MRX1 PRN PRN Reason: Insomnia Allergies Allergies Allergy/AdvReac Type Severity Reaction Status Date / Time No Known Allergies Allergy Verified 10/03/24 19:14 Assessment & Plan Assessment & Plan (1) Schizoaffective disorder: Status: Acute Code(s): F25.9 - Schizoaffective disorder, unspecified Plan Patient is a 24-year-old male with history of bipolar versus schizoaffective disorder who presents again after being discharged from a week ago, for manic behavior at the behest of his girlfriend. Patient initially irritable and hyperverbal, saying he wants to be discharged and that the reason he is here is i push positively...i'm a positive individual...that's why i'm here... However he willingly took Zyprexa 10 mg as a p.r.n. and afterward, he was more calm and much more organized in speech behavior. Patient reports that over the past week he and his girlfriend have been arguing. Initially they are arguing about the bills but after he found their male cat, urinating/spraying on various items, marking its territory on furniture and a number of patient's personal belongings. Frustrated he gave the cat away which significantly upset his girlfriend. Patient says that when I get an argument I just walk away... 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 He complied. Patient reports that over the past week has been sleeping about 4-5 hours a night. He denies any AVH; denies any drug or alcohol use other than cannabis which he said he quit a week ago. Denies any SI/HI. Materials Branch Chief discussed how much more organized and logical patient is after he took the Zyprexa and patient said he fully agrees that it has made a difference and that he feels more clear minded. He agreed to continue taking it. Formulation/clinical reasoning: Patient re presents, a week after discharge for similar presentation with manic behaviors. However patient seems to respond well to Zyprexa. He does not want to take lithium but agrees to continue taking Zyprexa daily. Has for diagnosis, will continue earlier diagnosis of schizoaffective disorder; could possibly be just bipolar disorder Hospital course: 10/06 Patient taking medications but still hypomanic/manic. Discussed this with patient who did not have much insight into this however agreed to increase Zyprexa to b.i.d. dosing. Materials Branch Chief discussed Depakote however patient did not want to take any other medications besides Zyprexa. He continued to talk about needing to go, take care of his car which was his main focused during the conversation. Patient slept Plan: CV Q 15 minute checks Increase to Zyprexa 10 mg b.i.d. (since patient needing Zyprexa PRNs) Zyprexa 5 mg t.i.d. p.r.n. for agitation Discontinue lithium; patient does not want and Zyprexa seem to be helpful Clonidine p.r.n. Patient educated on: diagnosis, medication risk/benefits and therapeutic strategies Informed Consent: understands, does not understand and further education needed Reason for continued inpatient stay Substantial Risk for: rapid decompensation Time Spent With Patient Time: Total time managing care of this patient today ____ minutes.
[2024-10-06 19:43] VITALS: BP 115/58; PULSE 77; RESP 16; TEMP 36.9; O2SAT 98
[2024-10-07 07:30] VITALS: BP 130/87; PULSE 74; RESP 16; TEMP 36.3; O2SAT 99
[2024-10-07] MEDS: OLANZapine 10 MG TABLET PO ×2 (08:44→21:10)
--- NOTE | 2024-10-07 11:07 | MHC.CLN ---
NUTRITION ROUTINE NUTRITION CONSULT. PATIENT WITH BMI=14.9, UNDERWEIGHT. DIET=REGULAR. ADDING ENSURE TID TO PROMOTE NUTRITIONAL STATUS. SUPPLEMENT PROVIDES 1050 KCALS. 60 G PROTEIN. ENCOURAGE INTAKE AT MEALS AND SNACKS ABLE.
[2024-10-07] MEDS: hydrOXYzine HCL 25 MG TABLET PO (15:22)
--- NOTE | 2024-10-07 16:08 | P.PNPSI_ITS ---
Subjective Subjective Date of Service: 10/07/24 Reason For Visit: florentin Interim History: hypomanic, no insight. taking zyprexa 10 BID, seems to indicate he will continue to take the medication. per staff, 3-day up 10/09. taking meds. 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 denies Sx. took meds last NOC. Mental Status Exam Mental Status Exam Narrative: Pt is alert and oriented; behavior is mildly irritable and hyperverbal, but can also be cooperative; patient is not in distress; dressed in casual attire well manicured hair cut and adequate hygiene; mood is described as good although affect constricted vs a little expansive; eye contact appropriate; Speech hyperverbal and somewhat pressured; normal loudness; intermittent mild psychomotor agitation present; thought process can be goal oriented and organized but also distracted; Thought content is on discharge, his profession, not on treatment; no paranoid/grandiose ideations expressed; no SI/HI/AVH expressed. There is no evidence of perceptual disturbance. Patients insight and judgment impaired but improved some Diagnostics Vital Signs (24Hr): Vital Signs - 24 hr 10/06/24 19:43 10/07/24 07:30 Temperature 98.4 F 97.3 F Pulse Rate 77 74 Respiratory Rate 16 16 Blood Pressure 115/58 L 130/87 Pulse Oximetry 98 99 Oxygen Delivery Method Room Air Room Air BMI result Body Mass Index 14.9 Labs 10/03/24 20:04 10/03/24 20:03 Medications Medications Current Medications Acetaminophen (Acetaminophen 325 Mg Tablet) 650 mg PO Q6H PRN PRN Reason: Headache/Pain Mild Scale (1-3) Al Hydroxide/Mg Hydroxide (Magnesium Hydrox/Alum Hydrox 30 Ml Oral.Susp) 30 ml PO Q6H PRN PRN Reason: Heartburn/Nausea Clonidine HCl (Clonidine Hcl 0.1 Mg Tablet) 0.1 mg PO Q4H PRN; Protocol PRN Reason: anxiety Hydroxyzine HCl (Hydroxyzine Hcl 25 Mg Tablet) 25 mg PO Q6H PRN PRN Reason: Anxiety Last Admin: 10/07/24 15:22 Dose: 25 mg Magnesium Hydroxide (Milk Of Magnesia 30 Ml Oral.Susp) 30 ml PO DAILY PRN PRN Reason: Constipation Nicotine Polacrilex (Nicotine Polacrilex 2 Mg Gum) 4 mg BUCCAL Q2H PRN PRN Reason: Nicotine Cravings Last Admin: 10/06/24 14:26 Dose: 4 mg Olanzapine (Olanzapine 10 Mg Tablet) 10 mg PO BID ALAN Last Admin: 10/07/24 08:44 Dose: 10 mg Olanzapine (Olanzapine 5 Mg Tablet) 5 mg PO QID PRN PRN Reason: agitation/florentin Last Admin: 10/06/24 14:43 Dose: 5 mg Trazodone HCl (Trazodone Hcl 50 Mg Tablet) 50 mg PO BEDTIME MRX1 PRN PRN Reason: Insomnia Allergies Allergies Allergy/AdvReac Type Severity Reaction Status Date / Time No Known Allergies Allergy Verified 10/03/24 19:14 Assessment & Plan Assessment & Plan (1) Schizoaffective disorder: Status: Acute Code(s): F25.9 - Schizoaffective disorder, unspecified Plan Patient is a 24-year-old male with history of bipolar versus schizoaffective disorder who presents again after being discharged from a week ago, for manic behavior at the behest of his girlfriend. Patient initially irritable and hyperverbal, saying he wants to be discharged and that the reason he is here is i push positively...i'm a positive individual...that's why i'm here... However he willingly took Zyprexa 10 mg as a p.r.n. and afterward, he was more calm and much more organized in speech behavior. Patient reports that over the past week he and his girlfriend have been arguing. Initially they are arguing about the bills but after he found their male cat, urinating/spraying on various items, marking its territory on furniture and a number of patient's personal belongings. Frustrated he gave the cat away which significantly upset his girlfriend. Patient says that when I get an argument I just walk away... 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 He complied. Patient reports that over the past week has been sleeping about 4-5 hours a night. He denies any AVH; denies any drug or alcohol use other than cannabis which he said he quit a week ago. Denies any SI/HI. Banking Analyst discussed how much more organized and logical patient is after he took the Zyprexa and patient said he fully agrees that it has made a difference and that he feels more clear minded. He agreed to continue taking it. Formulation/clinical reasoning: Patient re presents, a week after discharge for similar presentation with manic behaviors. However patient seems to respond well to Zyprexa. He does not want to take lithium but agrees to continue taking Zyprexa daily. Has for diagnosis, will continue earlier diagnosis of schizoaffective disorder; could possibly be just bipolar disorder Hospital course: 10/06 Patient taking medications but still hypomanic/manic. Discussed this with patient who did not have much insight into this however agreed to increase Zyprexa to b.i.d. dosing. Banking Analyst discussed Depakote however patient did not want to take any other medications besides Zyprexa. He continued to talk about needing to go, take care of his car which was his main focused during the conversation. Patient slept. 10/07: hypomanic, more organized and less irritable than at last hospitalization. taking zyprexa 10 BID. 3-day notice up . not very enthusiastic about medications. Plan: CV Q 15 minute checks Increase to Zyprexa 10 mg b.i.d. (since patient needing Zyprexa PRNs) Zyprexa 5 mg t.i.d. p.r.n. for agitation Discontinue lithium; patient does not want and Zyprexa seem to be helpful Clonidine p.r.n. Reason for continued inpatient stay Substantial Risk for: harm to others and rapid decompensation Time Spent With Patient Time: Total time managing care of this patient today __25__ minutes.
[2024-10-07 20:00] VITALS: BP 149/67; PULSE 102; RESP 16; TEMP 36.9; O2SAT 97
[2024-10-08 08:00] VITALS: BP 132/87; PULSE 87; RESP 16; TEMP 36.8; O2SAT 98
[2024-10-08] MEDS: OLANZapine 10 MG TABLET PO (08:23)
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
== END 2024-10-08 11:30 | disposition home or self-care (01) | DRG 750 ==
LOC: HO.ED 21:20 → HO.PADLT16 10-04 13:35
PROVIDERS: Physician Assistant Medical; Registered Nurse Emergency; Admitting Provider Psychiatry & Neurology Psychiatry; Emergency Provider Emergency Medicine; Visit Provider Psychiatry & Neurology Psychiatry
DX: F25.9 Schizoaffective disorder, unspecified (principal); Z20.822 Contact with and (suspected) exposure to COVID-19; Z79.899 Other long term (current) drug therapy
CPT/HCPCS: 0241U; 36415; 80053; 80307; 81003; 85025; 99285

== ENCOUNTER → 2024-10-04 13:33 | Outpatient (BNV) | payer OTHER, SELFPAY | PROVIDERS: Admitting Provider Psychiatry & Neurology Psychiatry; Emergency Provider Emergency Medicine; Visit Provider Psychiatry & Neurology Psychiatry | DX: F25.0 Schizoaffective disorder, bipolar type (principal) | CPT/HCPCS: 99232 ==

== ENCOUNTER 2025-07-01 20:55 | Emergency (ER) | payer MEDICAID, SELFPAY ==
--- NOTE | ~2025-07-01 | XR_ITS ---
CLINICAL HISTORY: pain 3 view right ankle Comparison: None provided Findings: Bones intact. No dislocations. No significant arthritic change or erosions. No ankle effusion. No radiopaque foreign body. IMPRESSION: 1. No acute findings. This document has been electronically signed by: Audelia Arvizu MD on 07/01/2025 22:11:17
--- NOTE | ~2025-07-01 | XR_ITS ---
CLINICAL HISTORY: fall pain 3 view right foot Comparison: None provided Findings: Bones intact. No dislocations. No significant loss of joint space, osteophytes, or erosions. No ankle effusion. No radiopaque foreign body. IMPRESSION: 1. No acute findings. This document has been electronically signed by: Audelia Arvizu MD on 07/01/2025 22:12:24
[2025-07-01 21:04] VITALS: BP 125/60; PULSE 79; RESP 16; TEMP 36.8; O2SAT 97; BMI 18.0
--- OUTSIDE RECORDS SUMMARY | 2025-07-01 23:25 | XMS_ITS | Clinical Summary ---
Author Organization [employer] [facility] Address [address] [address] Care Team Providers Care Mental Health Practitioner Name Role Phone Unavailable Primary Care Provider Unavailabl e Encounters Date Type Department Care Team Description 04/17/2025 Telephone [facility]LLMENT [address] [place] [address] Ana Quiroz MD 04/15/2025 Population Health Risk Score [facility] ([facility]) Department [address] [id number] Provider, Population Health Generic 04/10/2025 Telephone [facility] MEDICINE [address] [place] [address] Alfredo Taylor MD from Last 3 Months Social History Tobacco Use Types Packs/Day Years Used Date Smoking Tobacco: Never Assessed Sex and Gender Information Value Date Recorded Sex Assigned at Not on file Legal Sex Male 9:15 PM EDT Gender Identity Not on file Sexual Orientation Not on file Plan of Treatment Upcoming Encounters Date Type Department Care Team ([facility] st Contact Info) Description 08/20/2025 9:15 AM EST Office Visit [facility] MEDICINE [address] [place] [id number] Laura Martinez MD [address] [place] [address] Health Maintenance Due Date Last Done Comments Depression Screening 1999 HIV Screening 1999 SDOH Screening 1999 Disability Screening 1999 Alcohol/Substance Use Screening 2011 Tobacco Screening 2011 Family Planning (PISQ) 2014 HPV Vaccines (2 - Male 3-dos e series) 10/27/2015 09/29/2015 Hepatitis C Screening 2017 DTaP/Tdap/Td Vaccines (1 - Tdap) 2018 Hepatitis B Vaccines (1 of 3 - 19+ 3-dose series) 2018 COVID-19 Vaccine (1 - 2023-2 5 season) 2025 Influenza Vaccine (#1) 2025 Zoster Vaccines (1 of 2) 2049 RSV Patients and Pa tients Aged 60 years or older (1 - 1-dose 75+ series) 2074 Meningococcal Vaccine Completed 09/29/2015 HIB Vaccines Aged Out No longer eligi ble based on patient's age to complete this topic Hepatitis A Vaccines Aged Out No long er eligible based on patient's age to complete this topic IPV Vaccines Aged Out No longer eligi ble based on patient's age to complete this topic Meningococcal B Vaccine Aged Out No l onger eligible based on patient's age to complete this topic Pneumococcal Vaccine: Pediat rics (0 to 5 Years) and At-Risk Patients (6 to 49) Years Aged Out No longer eligi ble based on patient's age to complete this topic RSV under 20 months Aged Out No longe r eligible based on patient's age to complete this topic Rotavirus Vaccines Aged Out No longer eligible based on patient's age to complete this topic Insurance [facility]
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
[2025-07-02 00:54] VITALS: BP 125/60; PULSE 79; RESP 16; TEMP 36.8; O2SAT 97
== END 2025-07-02 00:56 | disposition home or self-care (01) ==
PROVIDERS: Emergency Provider Emergency Medicine
DX: M79.671 Pain in right foot (principal)
CPT/HCPCS: 73610; 73630; 99283

== ENCOUNTER → 2025-07-01 21:29 | Outpatient (BNV) | payer MEDICAID, SELFPAY | PROVIDERS: Visit Provider Student in an Organized Health Care Education/Training Program | DX: M25.571 Pain in right ankle and joints of right foot (principal); M79.671 Pain in right foot; W19.XXXA Unspecified fall, initial encounter | CPT/HCPCS: 73610; 73630 ==